=== PATIENT | female | born 1970 | race Asian ===

== ENCOUNTER 2024-03-14 13:36 | Outpatient (CLI) | payer BC | END 2024-03-14 13:37 | disposition home or self-care (01) | LOC: CSHMAMMO 13:36 | PROVIDERS: ATTEND Obstetrics & Gynecology | DX: Z12.31 Encounter for screening mammogram for malignant neoplasm of breast (principal) | CPT/HCPCS: 77063; 77067 ==

== ENCOUNTER 2025-05-09 12:01 | Outpatient (CLI) | payer OTHER | END 2025-05-09 12:02 | disposition home or self-care (01) | LOC: CSHMAMMO 12:01 | PROVIDERS: ATTEND Obstetrics & Gynecology | DX: Z12.31 Encounter for screening mammogram for malignant neoplasm of breast (principal) | CPT/HCPCS: 77063; 77067 ==